=== PATIENT | female | born 1950 | race Caucasian/White ===

== ENCOUNTER → 2017-03-28 | Outpatient (CLI) | payer BC ==
[~2017-03-28] MED LIST: REGADENOSON 0.4 MG/5 ML DISP.SYRIN. IV ONE
--- NOTE | 2017-03-28 13:23 | PCVCIMAG ---
APPROVED REPORT Exam: Nuclear Stress Test Indication: Pre-Operative CV evaluation, RICHARDSON Stress Nurse: Rika Carrillo RN, MITALI Mariscal Tech:Jeannie Olvera [facility] Ht: 5 ft 6 in Wt: 150 lbs BSA: 1.77 m2 HR: 70 bpm BP: 130/63 mmHg BMI: 24.2 Rhythm: SR Medical History Medical History: HTN, Hyperlipidemia, Age, Current Smoker Medications: Lisinopril, Metoprolol Allergies: ASA, Compazine, Talwin Pretest Chest Pain Characteristics: No chest pain Exercise History: Sedentary Physical Disabilities: Hips Meds Held (24 hrs): Metoprolol NM EXAM: Myocardial Perfusion REST/STRESS Imaging Protocol: Rest Tc-99m/Stress Tc-99m 1 day Resting Data Rest SPECT myocardial perfusion imaging was performed in supine position 45 minutes following the intravenous injection of 11.2 mCi of Tc-99m Sestamibi. Time of rest injection: 0850 Date: 03/28/2017 Administration Route: IV Administration Site: Right Arm Pharmacologic Stress Pharmacologic stress test was performed by injecting Regadenoson 0.4 mg IV push followed by the intravenous injection of 32.1 mCi of Tc-99m Sestamibi. Time of stress injection: 1025 Date: 03/28/2017 Administration Route: IV Administration Site: Right Arm Gated Stress SPECT was performed 45 minutes after stress injection. The images were gated to evaluate regional wall motion and calculate left ventricular ejection fraction. Study Quality Study: Good Study Data Post stress, the left ventricular ejection was 88%.. SSS: 0 SRS: 0 SDS: 0 TID = 1.19. Perfusion No evidence of stress induced ischemia or prior myocardial infarction. Wall Motion Normal left ventricular size and function with no regional wall motion abnormalities. Nuclear Conclusion No evidence of stress induced ischemia or prior myocardial infarction. Normal left ventricular size and function with no regional wall motion abnormalities. Post stress, the left ventricular ejection was 88%.. No change since prior study dated February 2015. Interpreted by: Polo Crawford MD Electronically Approved: 03/28/2017 13:17:56 Stress Test Details Stress Test: Pharmacologic stress testing performed using 0.4 mg of regadenoson per 5 mL given IV over 10 seconds. Reason for pharmacologic stress test: physical limitation. HR Resting HR: 70 bpmMax Heart Rate (APMHR): 152 bpm Max HR Achieved: 101 bpmTarget HR (85% APMHR): 129 bpm % of APMHR: 66 Recovery HR: 95 bpm BP Resting BP: 130/63 mmHg Max BP: 154/65 mmHg ECG Resting ECG: Sinus Rhythm Stress ECG: Sinus Tachycardia Maximum ST Deviation: 0 mm Arrhythmia: None Recovery ECG: Sinus Rhythm Recovery ST Change: None Recovery ST Deviation: 0 mm Recovery Arrhythmia: None Clinical Reason for Termination: Completed protocol Stress Symptoms: Abdominal discomfort Exercise duration: 0 min 55 sec Symptoms resolved during recovery. Stress ECG Conclusion ECG: Non-ischemic Clinical: Non-ischemic <Conclusion> ECG: Non-ischemic Clinical: Non-ischemic
== END | disposition home or self-care (01) ==
LOC: PCVCIMAG 08:14
PROVIDERS: ATTEND Nuclear Medicine Nuclear Cardiology
DX: Z01.810 Encounter for preprocedural cardiovascular examination (principal); I47.1 Supraventricular tachycardia; F11.20 Opioid dependence, uncomplicated; I10 Essential (primary) hypertension; Z72.0 Tobacco use; Z88.8 Allergy status to other drugs, medicaments and biological substances; Z79.899 Other long term (current) drug therapy; Z98.51 Tubal ligation status
CPT/HCPCS: 78452; 93005; 93017; A9500; G0463; J2785